=== PATIENT | male | born 1995 | race Two or more races ===

== ENCOUNTER 2024-07-18 19:17 | Inpatient (IN) | payer OTHER ==
[~2024-07-18] VITALS: Ht 170.2 cm; Wt 103.9 kg
[2024-07-18] MEDS: SODIUM CHLORIDE 0.9% 1,000 ML IV ONE ×3 (20:00→22:33)
--- NOTE | 2024-07-18 20:01 | ED.PDOC ---
HPI (NEURO) HPI Comments Carlos HPI: Poor Historian. 29-year-old male presents to emergency department for evaluation of bilateral leg weakness. Patient did some leg exercise at the gym today and was able to walk to his car. He then went to the dealership in when he was there he tried to get up and he fell back down because of bilateral leg weakness. Patient was eventually able to get up again and get to his car and drive his car to go buy some oil. Patient however still feels that there is some bilateral knee weakness. Denies any cauda equina like symptoms. Denies any back pain or abdominal pain. Denies any other injuries. Past Medical History: Diabetes Past Surgical History: Denies any REVIEW OF SYSTEMS: CONSTITUTIONAL: Denies acute: fever, diaphoresis, chills, generalized weakness. HEAD: Denies acute: headache, photophobia Eyes: Denies acute: Double vision, vision loss, eye pain, eye discharge. EARS: Denies acute: tinnitus, hearing loss, ear discharge, ear pain, THROAT: Denies acute: sore throat, swelling, difficulty swallowing , pain with swallowing, change in voice. NECK: Denies acute: neck pain, neck swelling, stiff neck. HEART: Denies acute : chest pain, palpitations, LUNGS: Denies acute: SOB, wheezing, cough, hemoptysis ABDOMEN: Denies acute: abdominal pain, Nausea, Vomiting, diarrhea, melena , hematemesis, hematochezia SKIN: Denies acute: rash, redness, lesions, itchiness. EXTREMITIES: Denies acute: calf pain, numbness, tingling, denies pain in extremity. Denies acute: Low back pain. Neuro: Denies acute: focal neurological deficit, motor or sensory focal neurological deficit, tremors, seizure like activity, confusion, dizziness, change in mental status, loss of bowel or bladder function, cauda equina like symptoms. : Denies acute: dysuria, hematuria, flank pain, increase in urinary frequency. PSYCH: Denies acute: hallucination, suicidal ideation, homicidal ideation. PHYSICAL EXAM: General: no acute distress, awake and alert. Head: normocephalic, atraumatic. Neck: supple, trachea is midline, no swelling. Throat: Normal phonation. Eyes:, no erythema, no purulent discharge, no proptosis, no icterus. Heart: regular tachycardic, no significant murmur appreciated. Lungs: no apparent respiratory distress, Able to speak in full sentences. No wheezing, no rhonchi, no crackles. No stridors Clear to auscultation bilaterally. Abdomen: non tender to palpation, non distended, soft, no guarding, no rebound, + bowel sounds. Neuro: Awake, Alert, oriented to name, self, situation, follows commands GCS=15. Speech is normal. Skin: no petechia, no purpura, no cyanosis, non-pale, not jaundice. Lower extremities: --no - Pitting edema no deformity, no focal swelling, no calf TTP. Makes eye contact. Bilateral lower extremity: Patient is able to flex bilateral hips and rates his knees against gravity and hold it. Patient has weakness of extension of bilateral knees. He feels some discomfort in bilateral knees when he tries to extend both his legs. Face: no apparent facial droop. ED COURSE: Chief Complaint: Lower Extremity Time Seen by MD: 19:22 Reviewed Notes: Nurses Notes, Allergies Information Source: Patient Was a procedure done? Was a procedure done?: No Differential Diagnosis (SZ) Seizure: N/A General Weakness: Anemia, CVA, Dehydration, Dysrhythmia, Electrolyte imbalance, Encephalopathy, Guillain-[place], Hypoglycemia, Hypotension, Hypovolemia, Labyrinthitis, Other (DDX include CVA, intracranial bleed/ischemia/infarct/infection/mass, carotid stenosis, vertebral/carotid artery dissection, radiculopathy, vertebrobasillary insufficiency, BPV, encephalopathy, temporal arteritis, electrolyte abnormality, thyroid disease, pseudotumor cerebri, hydrocephalus, [place] palsy, multiple sclerosis, hy poglycemia, drug toxicity, cardiac arrhythmia. cauda equina syndrome, transverse myelitis.) X-Ray, Labs, Meds, VS Vital Signs Date Time Temp Pulse Resp B/P (MAP) Pulse Ox O2 Delivery O2 Flow Rate FiO2 07/18/24 19:40 99.5 124 16 130/82 (98) 95 99.5 Lab Test 07/18/24 20:50 07/18/24 20:04 07/18/24 19:55 07/18/24 19:51 Range/Units Troponin I High Sensitivity < 3 L < 3 L </=54 ng/L Beta-Hydroxybutyric Acid Pending White Blood Count 12.7 H 4.4-10.8 10^3/uL Red Blood Count 5.93 H 4.5-5.90 10^6/uL Hemoglobin 17.6 H 13.5-17.5 g/dL Hematocrit 52.0 41.0-53.0 % Mean Corpuscular Volume 87.6 80.0-100.0 fL Mean Corpuscular Hemoglobin 29.6 28.0-32.0 pg Mean Corpuscular Hemoglobin Concent 33.8 32.0-36.0 g/dL Red Cell Distribution Width 13.4 11.8-14.3 % Platelet Count 214 140-450 10^3/uL Mean Platelet Volume 9.3 6.9-10.8 fL Neutrophils (%) (Auto) 69.9 37.0-80.0 % Lymphocytes (%) (Auto) 21.3 10.0-50.0 % Monocytes (%) (Auto) 7.8 0.0-12.0 % Eosinophils (%) (Auto) 0.5 0.0-7.0 % Basophils (%) (Auto) 0.5 0.0-2.0 % Neutrophils # (Auto) 8.9 H 1.6-8.6 10 ^3/uL Lymphocytes # (Auto) 2.7 0.4-5.4 10 ^3/uL Monocytes # (Auto) 1.0 0-1.3 10 ^3/uL Eosinophils # (Auto) 0.1 0-0.8 10 ^3/uL Basophils # (Auto) 0.1 0-0.2 10 ^3/uL Nucleated Red Blood Cells 0.4 % Sodium Level 138 136-145 mmol/L Potassium Level 3.4 L 3.5-5.1 mmol/L Chloride Level 102 98-107 mmol/L Carbon Dioxide Level 20 20-31 mmol/L Anion Gap 16 H 5-15 Blood Urea Nitrogen 14 9-23 mg/dL Creatinine 0.91 0.700-1.30 mg/dL Glomerular Filtration Rate Calc 118 >90 mL/min BUN/Creatinine Ratio 15.4 10.0-20.0 Serum Glucose 255 H 74-106 mg/dL Lactic Acid Level 4.2 *H 0.4-2.0 mmol/L Calcium Level 9.8 8.7-10.4 mg/dL Magnesium Level 1.7 1.6-2.6 mg/dL Total Bilirubin 0.7 0.2-1.0 mg/dL Aspartate Amino Transferase (AST) 39 13-40 U/L Alanine Aminotransferase (ALT) 107 H 7-40 U/L Alkaline Phosphatase 116 46-116 U/L Creatine Kinase 1791 H 46-171 U/L C-Reactive Protein High Sensitivity 0.14 <1.0 mg/dL Total Protein 7.3 5.7-8.2 g/dL Albumin 4.8 3.2-4.8 g/dL Urine Color Yellow Yellow Urine Clarity Clear Clear Urine pH 5.0 5.0-9.0 Urine Specific [place] 1.041 H 1.001-1.035 Urine Protein Trace H Negative Urine Ketones 1+ H Negative Urine Blood Negative Negative /uL Urine Nitrite Negative Negative Urine Bilirubin Negative Negative Urine Urobilinogen Normal Negative mg/dL Urine Leukocyte Esterase Negative Negative /uL Urine RBC <1 0 - 3 /hpf Urine Microscopic WBC 1 0-3 /HPF Urine Squamous Epithelial Cells None seen <5 /hpf Urine Bacteria None seen None Seen /hpf Urine Mucus Few None Seen Urine Glucose 4+ H Normal mg/dL Urine Opiates Screen Neg NEGATIVE Urine Fentanyl Screen Neg NEGATIVE Urine Barbiturates Screen Neg NEGATIVE Urine Phencyclidine Screen Neg NEGATIVE Urine Amphetamines Screen Neg NEGATIVE Urine Benzodiazepines Screen Neg NEGATIVE Urine Cocaine Screen Neg NEGATIVE Urine Cannabinoids Screen Neg NEGATIVE POC Glucose 243 H 70-106 mg/dl Current Medications Medications (Trade) Dose Ordered Sig/Tanya Route Start Time Stop Time Status Last Admin Sodium Chloride 1,000 ml @ 1,000 mls/hr Q1H ONCE IV 07/18/24 20:00 07/18/24 20:59 DC 07/18/24 20:00 Ondansetron HCl (Zofran) 8 mg ONCE ONCE IV 07/18/24 21:15 07/18/24 21:16 DC 07/18/24 21:24 Time of 1ST Reevaluation: 22:02 Reevaluation 1ST: Unchanged Patient Education/Counseling: Diagnosis, Treatment Family Education/Counseling: Other Comments Patient presented with the above HPI.---bilateral leg weakness---workup was initiated. patient was found with the above mentioned diagnosis. the following medications were ordered: please refer to order lists of meds and tests obtained by myself Dr. Norton. Patient ED course and VS have been stabilized. Patient has been reassessed in the ED and remained in a stable condition. Pertinent incidental findings were discussed with the patient and/or family. Patient/family voices understanding and is agreeable with plan. Patient has been observed in the ED adequate length of time to insure improvement/stability. Escalation of care considered: Consideration of escalation to observation or admission Patient was ADMITTED to the medicine team for further evaluation and treatment of their presentation. All the reports of any imaging studies that were ordered by myself were reviewed by myself. Departure 1 Departure Time of Disposition: 21:24 Impression: Primary Impression: Rhabdomyolysis Additional Impression: Bilateral leg weakness Disposition: ADMITTED INPATIENT Admit to: Tele Condition: Guarded Discharged With: Self Critical Care Note Critical Care Time?: Yes (35 min-critical care time only) MYLES NORTON DO Jul 18, 2024 20:01
[2024-07-18 20:24] LABS: Lymphocytes # (auto) 2.7 10 ^3/uL (0.4-5.4); Nucleated Red Blood Cells % 0.4 %
[2024-07-18 20:28] LABS: Basophils # (auto) 0.1 10 ^3/uL (0-0.2); Basophils % (auto) 0.5 % (0.0-2.0); Eosinophils # (auto) 0.1 10 ^3/uL (0-0.8); Eosinophils % (auto) 0.5 % (0.0-7.0); Hemoglobin 17.6 g/dL (13.5-17.5); Lymphocytes % (auto) 21.3 % (10.0-50.0); Mean Corpuscular Hemoglobin 29.6 pg (28.0-32.0); Mean Corpuscular Hgb Conc. 33.8 g/dL (32.0-36.0); Mean Corpuscular Volume 87.6 fL (80.0-100.0); Monocytes % (auto) 7.8 % (0.0-12.0); Neutrophils # (auto) 8.9 10 ^3/uL (1.6-8.6); Neutrophils % (auto) 69.9 % (37.0-80.0); Platelet Count (auto) 214 10^3/uL (140-450); Red Blood Cells 5.93 10^6/uL (4.5-5.90); Red Cell Distribution Width 13.4 % (11.8-14.3); White Blood Cell 12.7 10^3/uL (4.4-10.8)
[2024-07-18 20:31] LABS: Urine Bacteria None Seen /hpf (None Seen)
[2024-07-18 20:36] LABS: Alkaline Phosphatase 116 U/L (46-116); Anion Gap 16 (5-15); Aspartate Aminotransferase 39 U/L (13-40); BUN/Creatinine Ratio 15.4 (10.0-20.0); Blood Urea Nitrogen 14 mg/dL (9-23); CRP High Sensitivity 0.14 mg/dL (<1.0); Calcium 9.8 mg/dL (8.7-10.4); Carbon Dioxide 20 mmol/L (20-31); Chloride 102 mmol/L (98-107); Magnesium 1.7 mg/dL (1.6-2.6); Sodium 138 mmol/L (136-145); Total Protein 7.3 g/dL (5.7-8.2)
[2024-07-18 20:37] LABS: Bilirubin, Total 0.7 mg/dL (0.2-1.0)
[2024-07-18 21:19] LABS: Alanine Aminotransferase 107 U/L (7-40); Albumin 4.8 g/dL (3.2-4.8); Creatine Kinase IFCC 1791 U/L (46-171); Glucose 255 mg/dL (74-106); Potassium 3.4 mmol/L (3.5-5.1)
[2024-07-18 21:20] LABS: Amphetamine Screen, Urine Neg (NEGATIVE); Barbiturate Scree,Urine Neg (NEGATIVE); Benzodiazephine Screen, Urine Neg (NEGATIVE); Cannabinoid Screen, Urine Neg (NEGATIVE); Cocaine Screen, Urine Neg (NEGATIVE); Opiate Scree,Urine Neg (NEGATIVE); Phencyclidine Screen, Urine Neg (NEGATIVE)
[2024-07-18 21:22] LABS: Urine Blood Negative /uL (Negative); Urine Clarity Clear (Clear); Urine Color Yellow (Yellow); Urine Mucus FEW (None Seen); Urine Protein, UAD TRACE (Negative); Urine Specific Gravity 1.041 (1.001-1.035); Urine Squamous Epithelial Cell None Seen /hpf (<5); Urine Urobilinogen Normal (Negative); Urine WBC 1 /HPF (0-3)
[2024-07-18] MEDS: ONDANSETRON HCL 4 MG/2 ML VIAL IV ONE (21:24)
[2024-07-18 21:31] LABS: Lactic Acid w/Reflex 4.2 mmol/L (0.4-2.0)
[2024-07-18 22:37] LABS: Albumin 4.3 g/dL (3.2-4.8); Alkaline Phosphatase 100 U/L (46-116); Anion Gap 13 (5-15); Aspartate Aminotransferase 33 U/L (13-40); BUN/Creatinine Ratio 13.5 (10.0-20.0); Bilirubin, Total 0.6 mg/dL (0.2-1.0); Blood Urea Nitrogen 12 mg/dL (9-23); Chloride 105 mmol/L (98-107); Sodium 138 mmol/L (136-145); Total Protein 6.8 g/dL (5.7-8.2)
[2024-07-18 22:38] LABS: Alanine Aminotransferase 94 U/L (7-40); Carbon Dioxide 20 mmol/L (20-31); Glucose 312 mg/dL (74-106); Potassium 3.2 mmol/L (3.5-5.1)
[2024-07-18 22:49] LABS: Creatine Kinase IFCC 1527 U/L (46-171)
[2024-07-18] MEDS ORDERED: DOCUSATE SOD 100 MG CAP PO PRN (23:00)
[2024-07-18] MEDS ORDERED: ACETAMINOPHEN 325 MG TAB PO PRN (23:00)
[2024-07-18] MEDS ORDERED: DEXTROSE (50%) 50ML SYRG IV PRN (23:00)
[2024-07-18] MEDS ORDERED: HYDROcodone-ACET 5/325MG TAB PO PRN (23:00)
[2024-07-18] MEDS ORDERED: ONDANSETRON HCL 4 MG/2 ML VIAL IV PRN (23:00)
--- NOTE | 2024-07-18 23:14 | DVHHP2 ---
History of Present Illness Reason for Visit: Rhabdomyolysis History of Present Illness The patient is a 29-year-old male with past medical history of diabetes mellitus and hyperlipidemia presented to [facility] ED for evaluation of bilateral leg weakness. Patient was seen and evaluated in the ED, laboratory data shows WBC 12.7, platelets 214, sodium 138, potassium 3.8, BUN 12, creatinine 0.89, GFR 120, glucose 312, troponin 3, CPK 1791. Patient was given IV fluid, please see medication orders section in the computer. On my assessment, patient denied chest pain, no headache, no dizziness, no diaphoresis, no shortness of breaths, no nausea, no vomiting, no fever, no chills. No other modifying factor or other associated signs and symptoms noted. The patient was admitted to the hospital for further evaluation and medical management. Past Medical History Diabetes mellitus, HLD Past Surgical History Denies all surgeries Family History Reviewed, noncontributory to the management of this case. Past Social History The patient lives at home, denies smoking, alcohol or illicit drugs abuse. Review of Systems Constitutional: Yes: Weakness; No: Fever, Chills, Sweats, Malaise, Other Eyes: No: Pain, Vision change, Conjunctivae inflammation, Eyelid inflammation, Other, Redness ENT: No: Ear pain, Ear discharge, Nose pain, Nose discharge, Nose congestion, Mouth pain, Mouth swelling, Throat pain, Throat swelling, Other Respiratory: No: Cough, Dry, Shortness of breath, SOB with excertion, Wheezing, Hemoptysis, Pleuritic Pain, Sputum, Wheezing, Other Cardiovascular: No: Chest Pain, Palpitations, Orthopnea, Paroxysmal Noc. Dyspnea, Edema, Lt Headedness, Other Gastrointestinal: No: Nausea, Vomiting, Abdominal Pain, Diarrhea, Constipation, Melena, Hematochezia, Other Genitourinary: No Dysuria, No Frequency, No Incontinence, No Hematuria, No Retention, No Other Musculoskeletal: other (Bilateral leg weakness); No: neck pain, shoulder pain, arm pain, back pain, hand pain, leg pain, foot pain Skin: No: Rash, Lesions, Jaundice, Bruising, Other Neurological: No: Weakness, Numbness, Incoordination, Change in speech, Confusion, Seizures, Other Allergies: Coded Allergies: NO KNOWN ALLERGIES (Unverified , 07/18/24) Medications Current Medications Medications Dose Ordered Sig/Tanya Route Start Time Stop Time Status Last Admin Dose Admin Ceftriaxone Sodium 50 ml @ 100 mls/hr DAILY@09 IV 07/19/24 09:00 UNV Diagnostic Test (Pha) 1 strip IQ4HR 07/19/24 00:00 UNV Insulin Human Regular IQ4HR SC 07/19/24 00:00 UNV Dextrose 50 ml UD PRN IV 07/18/24 23:00 UNV Sodium Chloride 1,000 ml @ 120 mls/hr Q8H20M IV 07/18/24 23:00 UNV Acetaminophen/ Hydrocodone Bitart 1 tab Q4HP PRN PO 07/18/24 23:00 UNV Ondansetron HCl 4 mg Q4HP PRN IV 07/18/24 23:00 UNV Docusate Sodium 100 mg BIDPRN PRN PO 07/18/24 23:00 UNV Acetaminophen 650 mg Q6HP PRN PO 07/18/24 23:00 UNV Exam Vital Signs Vital Signs Date Time Temp Pulse Resp B/P (MAP) Pulse Ox O2 Delivery O2 Flow Rate FiO2 07/18/24 19:40 99.5 124 16 130/82 (98) 95 99.5 General Appearance: Alert, Oriented X3, Cooperative, No acute distress HEENT: Atraumatic, PERRLA, EOMI, Mucous membr. moist/pink Respiratory: Clear to auscultation, Normal air movement Cardiovascular: Regular rate, Normal S1, Normal S2, No murmurs Abdominal: Normal bowel sounds, Soft, No tenderness, No hepatospenomegaly, No masses Extremities: No clubbing, No cyanosis, No edema, Normal pulses, No tenderness/swelling Skin: No rashes, No breakdown, No significant lesion Neuro: Normal speech, Normal tone, Sensation intact, Cranial nerves 3-12 NL, Reflexes 2+, Other (Bilateral leg weakness) Psych/Mental Status: Mental status NL, Mood NL Labs/Xrays Labs Test 07/18/24 22:05 07/18/24 20:50 07/18/24 20:04 07/18/24 19:55 Range/Units Sodium Level 138 136-145 mmol/L Potassium Level 3.2 L 3.5-5.1 mmol/L Chloride Level 105 98-107 mmol/L Carbon Dioxide Level 20 20-31 mmol/L Anion Gap 13 5-15 Blood Urea Nitrogen 12 9-23 mg/dL Creatinine 0.89 0.700-1.30 mg/dL Glomerular Filtration Rate Calc 120 >90 mL/min BUN/Creatinine Ratio 13.5 10.0-20.0 Serum Glucose 312 H 74-106 mg/dL Calcium Level 9.0 8.7-10.4 mg/dL Total Bilirubin 0.6 0.2-1.0 mg/dL Aspartate Amino Transferase (AST) 33 13-40 U/L Alanine Aminotransferase (ALT) 94 H 7-40 U/L Alkaline Phosphatase 100 46-116 U/L Creatine Kinase 1527 H 46-171 U/L Total Protein 6.8 5.7-8.2 g/dL Albumin 4.3 3.2-4.8 g/dL Troponin I High Sensitivity < 3 L </=54 ng/L Beta-Hydroxybutyric Acid 0.208 < 0.4 mmol/L White Blood Count 12.7 H 4.4-10.8 10^3/uL Red Blood Count 5.93 H 4.5-5.90 10^6/uL Hemoglobin 17.6 H 13.5-17.5 g/dL Hematocrit 52.0 41.0-53.0 % Mean Corpuscular Volume 87.6 80.0-100.0 fL Mean Corpuscular Hemoglobin 29.6 28.0-32.0 pg Mean Corpuscular Hemoglobin Concent 33.8 32.0-36.0 g/dL Red Cell Distribution Width 13.4 11.8-14.3 % Platelet Count 214 140-450 10^3/uL Mean Platelet Volume 9.3 6.9-10.8 fL Neutrophils (%) (Auto) 69.9 37.0-80.0 % Lymphocytes (%) (Auto) 21.3 10.0-50.0 % Monocytes (%) (Auto) 7.8 0.0-12.0 % Eosinophils (%) (Auto) 0.5 0.0-7.0 % Basophils (%) (Auto) 0.5 0.0-2.0 % Neutrophils # (Auto) 8.9 H 1.6-8.6 10 ^3/uL Lymphocytes # (Auto) 2.7 0.4-5.4 10 ^3/uL Monocytes # (Auto) 1.0 0-1.3 10 ^3/uL Eosinophils # (Auto) 0.1 0-0.8 10 ^3/uL Basophils # (Auto) 0.1 0-0.2 10 ^3/uL Nucleated Red Blood Cells 0.4 % Magnesium Level 1.7 1.6-2.6 mg/dL C-Reactive Protein High Sensitivity 0.14 <1.0 mg/dL Urine Color Yellow Yellow Urine Clarity Clear Clear Urine pH 5.0 5.0-9.0 Urine Specific [place] 1.041 H 1.001-1.035 Urine Protein Trace H Negative Urine Ketones 1+ H Negative Urine Blood Negative Negative /uL Urine Nitrite Negative Negative Urine Bilirubin Negative Negative Urine Urobilinogen Normal Negative mg/dL Urine Leukocyte Esterase Negative Negative /uL Urine RBC <1 0 - 3 /hpf Urine Microscopic WBC 1 0-3 /HPF Urine Squamous Epithelial Cells None seen <5 /hpf Urine Bacteria None seen None Seen /hpf Urine Mucus Few None Seen Urine Glucose 4+ H Normal mg/dL Urine Opiates Screen Neg NEGATIVE Urine Fentanyl Screen Neg NEGATIVE Urine Barbiturates Screen Neg NEGATIVE Urine Phencyclidine Screen Neg NEGATIVE Urine Amphetamines Screen Neg NEGATIVE Urine Benzodiazepines Screen Neg NEGATIVE Urine Cocaine Screen Neg NEGATIVE Urine Cannabinoids Screen Neg NEGATIVE Test 07/18/24 19:51 Range/Units POC Glucose 243 H 70-106 mg/dl Assessment/Plan Assessment/Plan Rhabdomyolysis Bilateral leg weakness Leukocytosis, unspecified Plan 1. Admit to telemetry unit 2. Breathing treatment 3. Pain control management 4. IV antibiotic management 5. Management of fluids and electrolytes 6. Consultation for hospitalist 7. Diagnostic test chest x-ray 8. DVT prophylaxis on SCDs 9. Repeat labs CBC, CMP in a.m. 10. Home medication reviewed and reconciled 11. Continue with current medical management 12. Treatment plan discussed with patient and RN. Patient verbalized understanding. Plan discussed with: Patient, Other (RN) My Orders Orders - TAYLER JENKINS DNP Procedure Category Date Status Time Potassium Er Tablet PHA 07/18/24 Logged (Klor-Con Tablet) 23:00 Ceftriaxone 1gm/50ml PHA 07/19/24 Logged D5w (Rocephin) 09:00 Ceftriaxone 1gm/50ml PHA 07/18/24 Logged D5w (Rocephin) 23:00 Consistent DIET 07/19/24 Transmitted Carb(Ccho)Diabetes Breakfast Glucose Blood PHA 07/19/24 Logged (Accu-Chek Comfort 00:00 Insulin R (Human) PHA 07/19/24 Logged (Insulin R) 00:00 Dextrose 50% Syringe PHA 07/18/24 Logged 23:00 Allergies [facility] 07/18/24 In Process 22:51 Code Status CODE 07/18/24 Transmitted 22:51 Sodium Chloride 0.9% PHA 07/18/24 Logged 23:00 Oxygen Per Hour RT 07/18/24 Transmitted 22:51 Hydrocodone-Acet PHA 07/18/24 Logged 5/325mg Tab ([place] 23:00 Ondansetron Hcl PHA 07/18/24 Logged (Zofran) 23:00 Docusate Sodium PHA 07/18/24 Logged Capsule ([place] 23:00 Complete Blood Count LAB 07/19/24 Verified 04:00 Comprehensive LAB 07/19/24 Verified Metabolic Panel 04:00 Condition: Serious [facility] 07/18/24 In Process 22:51 Acetaminophen Tablet [facility] 07/18/24 Logged (Tylenol Tablet) 23:00 Bedrest With Bathroom ECTOR 07/18/24 In Process Privileg 22:51 Sequential [facility] 07/18/24 In Process Compression Device Admit ADMIT 07/18/24 Verified 23:12 Nitroglycerin [facility] 07/18/24 Verified Sublingual (Ntrostat 23:15 Morphine Sulfate [facility] 07/18/24 Verified Injection 23:15 Stat Ekg For Chest [facility] 07/18/24 Verified Pain 23:12 Notify Md Of Changes [facility] 07/18/24 Verified From Base 23:12 Rehab Specialist For [facility] 07/18/24 Verified 24 Hours 23:12 Emergency Dysrhythmia [facility] 07/18/24 Verified Protocol 23:12 Rhythm Strips Once [facility] 07/18/24 Verified Every Shift 23:12 Oxygen By Nasal RT 07/18/24 Verified Cannula 23:12 Problem List: (1) Rhabdomyolysis (2) Bilateral leg weakness (3) Leukocytosis, unspecified Date of Service: Jul 18, 2024 Billing Provider: TAYLER JENKINS DNP Common Visit Codes: [id number] INP/OBS CARE (HIGH) TAYLER JENKINS DNP Jul 18, 2024 23:14
[2024-07-18] MEDS ORDERED: NITROGLYCERIN 0.4 MG SL TAB SL PRN (23:15)
[2024-07-18] MEDS ORDERED: MORPHINE SULFATE INJ 2 MG/ml SYRG IV PRN (23:15)
[2024-07-19] VITALS (9 sets, daily range): BP systolic 102–127; BP diastolic 61–78; PULSE 76–101; RESP 16–22; TEMP 97.7–98.2; O2SAT 94–97
[2024-07-19] MEDS: ACCU-CHEK COMFORT CURVE STRIP VI SCH (01:22)
[2024-07-19] MEDS: cefTRIAXone 1GM/50ML D5W 50 ML IV ONE (01:25)
[2024-07-19] MEDS: POTASSIUM CHL 20 Meq TABLET PO ONE (01:25)
[2024-07-19] MEDS: InsuLIN REG 1unit/0.01ml Soln (100units/ml) SC SCH (01:26)
[2024-07-19] MEDS: SODIUM CHLORIDE 0.9% 1,000 ML IV SCH (02:05)
[2024-07-19] MEDS ORDERED: GLIP10TA21 PO (03:02)
[2024-07-19] MEDS ORDERED: METF-372 PO (03:02)
[2024-07-19 06:35] LABS: Basophils # (auto) 0 10 ^3/uL (0-0.2); Basophils % (auto) 0.4 % (0.0-2.0); Eosinophils # (auto) 0.1 10 ^3/uL (0-0.8); Eosinophils % (auto) 0.9 % (0.0-7.0); Hematocrit 44.9 % (41.0-53.0); Lymphocytes # (auto) 3.1 10 ^3/uL (0.4-5.4); Lymphocytes % (auto) 37.4 % (10.0-50.0); Mean Corpuscular Hemoglobin 29.5 pg (28.0-32.0); Mean Corpuscular Hgb Conc. 33.4 g/dL (32.0-36.0); Mean Corpuscular Volume 88.2 fL (80.0-100.0); Monocytes # (auto) 0.7 10 ^3/uL (0-1.3); Monocytes % (auto) 8.2 % (0.0-12.0); Neutrophils # (auto) 4.3 10 ^3/uL (1.6-8.6); Neutrophils % (auto) 53.1 % (37.0-80.0); Nucleated Red Blood Cells % 0.1 %; Platelet Count (auto) 202 10^3/uL (140-450); Red Blood Cells 5.09 10^6/uL (4.5-5.90); Red Cell Distribution Width 13.6 % (11.8-14.3); White Blood Cell 8.2 10^3/uL (4.4-10.8)
[2024-07-19 06:53] LABS: Sodium 143 mmol/L (136-145)
[2024-07-19 07:02] LABS: Calcium 8.7 mg/dL (8.7-10.4)
[2024-07-19 07:04] LABS: Alkaline Phosphatase 82 U/L (46-116)
[2024-07-19 07:05] LABS: Chloride 111 mmol/L (98-107); Potassium 3.1 mmol/L (3.5-5.1)
[2024-07-19 07:06] LABS: Anion Gap 10 (5-15); Carbon Dioxide 22 mmol/L (20-31)
[2024-07-19 07:07] LABS: BUN/Creatinine Ratio 19.7 (10.0-20.0); Blood Urea Nitrogen 13 mg/dL (9-23)
[2024-07-19 07:08] LABS: Aspartate Aminotransferase 27 U/L (13-40)
[2024-07-19 07:09] LABS: Bilirubin, Total 0.8 mg/dL (0.2-1.0)
[2024-07-19 07:13] LABS: Alanine Aminotransferase 78 U/L (7-40); Glucose 122 mg/dL (74-106)
--- NOTE | 2024-07-19 09:09 | DVHPN2 ---
Subjective Decreasing muscle soreness Reviewed: Care Plan, H&P, Labs, Medications, Previous Orders, Radiology Changes from previous H/P or p: Changes Objective Vitals Vital Signs Date Time Temp Pulse Resp B/P (MAP) Pulse Ox O2 Delivery O2 Flow Rate FiO2 07/19/24 08:54 97.9 84 20 102/72 (82) 96 97.9 07/19/24 02:26 Room Air* 0 21 Intake/Output Intake and Output 07/19/24 07:00 Intake Total 3740 ml Output Total 600 ml Balance 3140 ml Intake Oral 740 ml IV Total 3000 ml Output Urine Total 600 ml # Voids 4 General Appearance: Alert, Oriented X3, Cooperative, No acute distress HEENT: Atraumatic Lungs: Clear to auscultation, Normal air movement Cardiovascular: Regular rate, Normal S1, Normal S2 Abdomen: Normal bowel sounds, Soft, No tenderness Extremities: No edema Neuro: Normal speech, Cranial nerves 3-12 NL Psych/Mental Status: Mental status NL, Mood NL Medications Current Medications Medications Dose Ordered Sig/Tanya Route Start Time Stop Time Status Last Admin Dose Admin Ceftriaxone Sodium 50 ml @ 100 mls/hr DAILY@09 IV 07/19/24 09:00 Diagnostic Test (Pha) 1 strip IQ4HR 07/19/24 00:00 07/19/24 08:00 1 STRIP Insulin Human Regular IQ4HR SC 07/19/24 00:00 07/19/24 08:00 6 UNITS Dextrose 50 ml UD PRN IV 07/18/24 23:00 Sodium Chloride 1,000 ml @ 120 mls/hr Q8H20M IV 07/18/24 23:00 07/19/24 07:39 120 MLS/HR Acetaminophen/ Hydrocodone Bitart 1 tab Q4HP PRN PO 07/18/24 23:00 Ondansetron HCl 4 mg Q4HP PRN IV 07/18/24 23:00 Docusate Sodium 100 mg BIDPRN PRN PO 07/18/24 23:00 Acetaminophen 650 mg Q6HP PRN PO 07/18/24 23:00 Nitroglycerin 0.4 mg Q5MINP PRN SL 07/18/24 23:15 Morphine Sulfate 2 mg Q30M PRN IV 07/18/24 23:15 Laboratory Results Laboratory Tests 07/19/24 05:30 Chemistry Test 07/18/24 20:04 07/18/24 22:05 07/19/24 05:30 Albumin 4.8 g/dL (3.2-4.8) 4.3 g/dL (3.2-4.8) 4.0 g/dL (3.2-4.8) Calcium Level 9.8 mg/dL (8.7-10.4) 9.0 mg/dL (8.7-10.4) 8.7 mg/dL (8.7-10.4) Magnesium Level 1.7 mg/dL (1.6-2.6) Total Protein 7.3 g/dL (5.7-8.2) 6.8 g/dL (5.7-8.2) 6.0 g/dL (5.7-8.2) LFT Test 07/18/24 20:04 07/18/24 22:05 07/19/24 05:30 Alanine Aminotransferase (ALT) 107 U/L (7-40) H 94 U/L (7-40) H 78 U/L (7-40) H Alkaline Phosphatase 116 U/L (46-116) 100 U/L (46-116) 82 U/L (46-116) Aspartate Amino Transferase (AST) 39 U/L (13-40) 33 U/L (13-40) 27 U/L (13-40) Total Bilirubin 0.7 mg/dL (0.2-1.0) 0.6 mg/dL (0.2-1.0) 0.8 mg/dL (0.2-1.0) Urinalysis Test 07/18/24 19:55 Urine Color Yellow (Yellow) Urine Clarity Clear (Clear) Urine pH 5.0 (5.0-9.0) Urine Specific [place] 1.041 (1.001-1.035) Urine Protein Trace (Negative) H Urine Ketones 1+ (Negative) H Urine Blood Negative /uL (Negative) Urine Nitrite Negative (Negative) Urine Bilirubin Negative (Negative) Urine Urobilinogen Normal mg/dL (Negative) Urine Leukocyte Esterase Negative /uL (Negative) Urine RBC <1 /hpf (0 - 3) Urine Microscopic WBC 1 /HPF (0-3) Urine Squamous Epithelial Cells None seen /hpf (<5) Urine Bacteria None seen /hpf (None Seen) Urine Mucus Few (None Seen) Urine Glucose 4+ mg/dL (Normal) H Labs and/or images reviewed: Labs reviewed by me, Image(s) reviewed by me Assessment/Plan Assessment/Plan A 29-year-old male patient; with a past medical history of diabetes mellitus type 2 and morbid obesity; who presented to emergency department with muscle soreness after excessive exercise and dehydration. #Rhabdomyolysis due to excessive exercise and dehydration; causing muscle soreness; creatinine kinase trending down; continue IV fluids; reviewed urinalysis and drug screen; continue pain management as indicated; continue monitoring #Dehydration with impaired renal function; avoid nephrotoxic agents; continue IV fluids; continue monitoring #SIRS with leukocytosis, tachypnea, and tachycardia; reactive; resolved; to stop IV antibiotics; continue monitoring Hypokalemia; most likely due to decreased oral intake; to replace electrolyte/s as indicated; ordered add-on magnesium level to morning labs; ordered potassium replacement; continue monitoring #Diabetes mellitus type 2; holding home medications including metformin; continue insulin sliding scale with hypoglycemia protocol; continue monitoring #Morbid obesity; counseled the patient on the importance of adopting healthy lifestyle with diet and exercise in order to lose weight; continue monitor Goals of care discussed with the patient for 20 minutes; full code Late Entry. This medical document was created using an electronic medical record system with computerized dictation system. Although this document has been carefully reviewed, there might still be some phonetic and typographical errors. These areas are purely typographical due to imperfections of the software programs, and do not reflect any compromise in the patient's medical care. Plan discussed with: Patient, Other (Nurse; Mother) My Orders Orders - VIC GEE MD Procedure Category Date Status Time Potassium Effervesent PHA 07/19/24 Logged Tab (Klor-Con/Ef) 09:15 Potassium Chloride PHA 07/19/24 Logged (Potassium Chloride). 09:15 Magnesium LAB 07/19/24 Transmitted 09:06 Complete Blood Count LAB 07/20/24 Verified 04:00 Comprehensive LAB 07/20/24 Verified Metabolic Panel 04:00 Creatine Kinase LAB 07/20/24 Verified 04:00 Date of Service: Jul 19, 2024 Billing Provider: VIC GEE MD Common Visit Codes: [id number] INP/OBS CARE(HIGH) Secondary Visit Codes: [id number] CARE PLAN 30 MINUTES (20 minutes) VIC GEE MD Jul 19, 2024 09:09
[2024-07-19] MEDS: cefTRIAXone 1GM/50ML D5W 50 ML IV SCH (09:21)
[2024-07-19] MEDS: POTASSIUM CHLORIDE 40 MEQ, LIDOCAINE 1% (LOCAL ANESTH.) 4 ML in SODIUM CHL 0.9% 250 ML IV ONE (10:50)
[2024-07-19] MEDS: POTASSIUM EFFERVESENT TAB 25 MEQ PO ONE (10:50)
[2024-07-19] MEDS: MAGNESIUM SULFATE 1GM/100ML 100 ML IV ONE (11:41)
[2024-07-20 01:00] VITALS: BP 112/72; PULSE 84; RESP 24; TEMP 98; O2SAT 95
[2024-07-20 04:57] VITALS: BP 117/67; PULSE 76; RESP 20; TEMP 97.8; O2SAT 94
[2024-07-20 06:07] LABS: Basophils # (auto) 0 10 ^3/uL (0-0.2); Basophils % (auto) 0.4 % (0.0-2.0); Eosinophils # (auto) 0.1 10 ^3/uL (0-0.8); Eosinophils % (auto) 1.3 % (0.0-7.0); Hematocrit 43.1 % (41.0-53.0); Hemoglobin 15.2 g/dL (13.5-17.5); Lymphocytes # (auto) 2.7 10 ^3/uL (0.4-5.4); Mean Corpuscular Hgb Conc. 35.2 g/dL (32.0-36.0); Monocytes # (auto) 0.6 10 ^3/uL (0-1.3); Monocytes % (auto) 7.2 % (0.0-12.0); Neutrophils # (auto) 4.5 10 ^3/uL (1.6-8.6); Neutrophils % (auto) 57.1 % (37.0-80.0); Nucleated Red Blood Cells % 0.2 %; Platelet Count (auto) 178 10^3/uL (140-450); Red Blood Cells 4.89 10^6/uL (4.5-5.90); Red Cell Distribution Width 13.5 % (11.8-14.3); White Blood Cell 7.9 10^3/uL (4.4-10.8)
[2024-07-20 06:19] LABS: Albumin 3.9 g/dL (3.2-4.8); Alkaline Phosphatase 84 U/L (46-116); Anion Gap 10 (5-15); Aspartate Aminotransferase 27 U/L (13-40); BUN/Creatinine Ratio 16.7 (10.0-20.0); Bilirubin, Total 0.8 mg/dL (0.2-1.0); Blood Urea Nitrogen 11 mg/dL (9-23); Calcium 8.8 mg/dL (8.7-10.4); Carbon Dioxide 23 mmol/L (20-31); Chloride 107 mmol/L (98-107); Potassium 3.8 mmol/L (3.5-5.1); Sodium 140 mmol/L (136-145); Total Protein 6.1 g/dL (5.7-8.2)
[2024-07-20 06:44] LABS: Alanine Aminotransferase 74 U/L (7-40); Creatine Kinase IFCC 637 U/L (46-171); Glucose 176 mg/dL (74-106)
[2024-07-20 08:00] VITALS: PULSE 76; PULSE 84; RESP 16; O2SAT 95
--- NOTE | 2024-07-20 09:17 | DVHPN2 ---
Subjective Feeling great this morning with no complaint Reviewed: Care Plan, H&P, Labs, Medications, Previous Orders, Radiology Changes from previous H/P or p: Changes Objective Vitals Vital Signs Date Time Temp Pulse Resp B/P (MAP) Pulse Ox O2 Delivery O2 Flow Rate FiO2 07/20/24 04:57 97.8 76 20 117/67 (84) 94 97.8 07/19/24 20:00 Room Air* 0 21 Intake/Output Intake and Output 07/20/24 07:00 Intake Total 2310 ml Output Total 600 ml Balance 1710 ml Intake Oral 2090 ml IV Total 220 ml Output Urine Total 600 ml # Voids 8 # Bowel Movements 2 General Appearance: Alert, Oriented X3, Cooperative, No acute distress HEENT: Atraumatic Lungs: Clear to auscultation, Normal air movement Cardiovascular: Regular rate, Normal S1, Normal S2 Abdomen: Normal bowel sounds, Soft, No tenderness Extremities: No edema Neuro: Normal speech, Cranial nerves 3-12 NL Psych/Mental Status: Mental status NL, Mood NL Medications Current Medications Medications Dose Ordered Sig/Tanya Route Start Time Stop Time Status Last Admin Dose Admin Diagnostic Test (Pha) 1 strip IQ4HR 07/19/24 00:00 07/20/24 08:00 1 STRIP Insulin Human Regular IQ4HR SC 07/19/24 00:00 07/20/24 09:01 6 UNITS Dextrose 50 ml UD PRN IV 07/18/24 23:00 Sodium Chloride 1,000 ml @ 120 mls/hr Q8H20M IV 07/18/24 23:00 07/20/24 08:47 120 MLS/HR Acetaminophen/ Hydrocodone Bitart 1 tab Q4HP PRN PO 07/18/24 23:00 Ondansetron HCl 4 mg Q4HP PRN IV 07/18/24 23:00 Docusate Sodium 100 mg BIDPRN PRN PO 07/18/24 23:00 Acetaminophen 650 mg Q6HP PRN PO 07/18/24 23:00 Nitroglycerin 0.4 mg Q5MINP PRN SL 07/18/24 23:15 Morphine Sulfate 2 mg Q30M PRN IV 07/18/24 23:15 Laboratory Results Laboratory Tests 07/20/24 05:20 Chemistry Test 07/20/24 05:20 Albumin 3.9 g/dL (3.2-4.8) Calcium Level 8.8 mg/dL (8.7-10.4) Total Protein 6.1 g/dL (5.7-8.2) LFT Test 07/20/24 05:20 Alanine Aminotransferase (ALT) 74 U/L (7-40) H Alkaline Phosphatase 84 U/L (46-116) Aspartate Amino Transferase (AST) 27 U/L (13-40) Total Bilirubin 0.8 mg/dL (0.2-1.0) Urinalysis Test 07/18/24 19:55 Urine Color Yellow (Yellow) Urine Clarity Clear (Clear) Urine pH 5.0 (5.0-9.0) Urine Specific Dexter 1.041 (1.001-1.035) Urine Protein Trace (Negative) H Urine Ketones 1+ (Negative) H Urine Blood Negative /uL (Negative) Urine Nitrite Negative (Negative) Urine Bilirubin Negative (Negative) Urine Urobilinogen Normal mg/dL (Negative) Urine Leukocyte Esterase Negative /uL (Negative) Urine RBC <1 /hpf (0 - 3) Urine Microscopic WBC 1 /HPF (0-3) Urine Squamous Epithelial Cells None seen /hpf (<5) Urine Bacteria None seen /hpf (None Seen) Urine Mucus Few (None Seen) Urine Glucose 4+ mg/dL (Normal) H Labs and/or images reviewed: Labs reviewed by me, Image(s) reviewed by me Assessment/Plan Assessment/Plan A 29-year-old male patient; with a past medical history of diabetes mellitus type 2 and morbid obesity; who presented to emergency department with muscle soreness after excessive exercise and dehydration. #Rhabdomyolysis due to excessive exercise and dehydration; causing muscle soreness that is now resolved; creatinine kinase continues trending down; received IV fluids; reviewed urinalysis and drug screen; to be discharged home; educated about keeping well hydrated; to follow up with discharge clinic or with the primary care provider within one week #Dehydration with impaired renal function; avoid nephrotoxic agents; received IV fluids; educated about keeping well hydrated; to follow up with discharge clinic or with the primary care provider within one week #Lactic acidosis due to dehydration; received IV fluids; resolved; educated about keeping well hydrated; to follow up with discharge clinic or with the primary care provider within one week #SIRS with leukocytosis, tachypnea, and tachycardia; reactive; resolved; stopped IV antibiotics; to follow up with discharge clinic or with the primary care provider within one week #Hypokalemia; most likely due to decreased oral intake; corrected after replacement; to follow up with discharge clinic or with the primary care provider within one week #Diabetes mellitus type 2; holding home medications including metformin during hospitalization; was on insulin sliding scale with hypoglycemia protocol; to resume home antidiabetic medications upon discharge; to follow up with discharge clinic or with the primary care provider within one week #Morbid obesity; counseled the patient on the importance of adopting healthy lifestyle with diet and exercise in order to lose weight; to follow up with discharge clinic or with the primary care provider within one week This medical document was created using an electronic medical record system with computerized dictation system. Although this document has been carefully reviewed, there might still be some phonetic and typographical errors. These areas are purely typographical due to imperfections of the software programs, and do not reflect any compromise in the patient's medical care. Plan discussed with: Patient, Other (Nurse) Date of Service: Jul 20, 2024 Billing Provider: VIC GEE MD Common Visit Codes: [id number] INP/OBS CARE(MOD) VIC GEE MD Jul 20, 2024 09:16
--- NOTE | 2024-07-20 09:20 | DVHDS2 ---
Discharge Summary Date of Admission Jul 18, 2024 at 23:12 Date of Discharge: Jul 20, 2024 Admitting Diagnosis Muscle soreness Labs/Diagnostic Data: Laboratory Results Test 07/20/24 08:34 07/20/24 05:20 07/19/24 09:08 07/19/24 05:30 POC Glucose 236 mg/dl (70-106) White Blood Count 7.9 10^3/uL (4.4-10.8) Red Blood Count 4.89 10^6/uL (4.5-5.90) Hemoglobin 15.2 g/dL (13.5-17.5) Hematocrit 43.1 % (41.0-53.0) Mean Corpuscular Volume 88.0 fL (80.0-100.0) Mean Corpuscular Hemoglobin 31.0 pg (28.0-32.0) Mean Corpuscular Hemoglobin Concent 35.2 g/dL (32.0-36.0) Red Cell Distribution Width 13.5 % (11.8-14.3) Platelet Count 178 10^3/uL (140-450) Mean Platelet Volume 9.2 fL (6.9-10.8) Neutrophils (%) (Auto) 57.1 % (37.0-80.0) Lymphocytes (%) (Auto) 34.0 % (10.0-50.0) Monocytes (%) (Auto) 7.2 % (0.0-12.0) Eosinophils (%) (Auto) 1.3 % (0.0-7.0) Basophils (%) (Auto) 0.4 % (0.0-2.0) Neutrophils # (Auto) 4.5 10 ^3/uL (1.6-8.6) Lymphocytes # (Auto) 2.7 10 ^3/uL (0.4-5.4) Monocytes # (Auto) 0.6 10 ^3/uL (0-1.3) Eosinophils # (Auto) 0.1 10 ^3/uL (0-0.8) Basophils # (Auto) 0 10 ^3/uL (0-0.2) Nucleated Red Blood Cells 0.2 % Sodium Level 140 mmol/L (136-145) Potassium Level 3.8 mmol/L (3.5-5.1) Chloride Level 107 mmol/L (98-107) Carbon Dioxide Level 23 mmol/L (20-31) Anion Gap 10 (5-15) Blood Urea Nitrogen 11 mg/dL (9-23) Creatinine 0.66 mg/dL (0.700-1.30) Glomerular Filtration Rate Calc 132 mL/min (>90) BUN/Creatinine Ratio 16.7 (10.0-20.0) Serum Glucose 176 mg/dL (74-106) Calcium Level 8.8 mg/dL (8.7-10.4) Total Bilirubin 0.8 mg/dL (0.2-1.0) Aspartate Amino Transferase (AST) 27 U/L (13-40) Alanine Aminotransferase (ALT) 74 U/L (7-40) Alkaline Phosphatase 84 U/L (46-116) Creatine Kinase 637 U/L (46-171) Total Protein 6.1 g/dL (5.7-8.2) Albumin 3.9 g/dL (3.2-4.8) Lactic Acid Level 1.7 mmol/L (0.4-2.0) Magnesium Level 1.8 mg/dL (1.6-2.6) Test 07/18/24 20:50 07/18/24 20:04 07/18/24 19:55 Troponin I High Sensitivity < 3 ng/L (</=54) Beta-Hydroxybutyric Acid 0.208 mmol/L (< 0.4) C-Reactive Protein High Sensitivity 0.14 mg/dL (<1.0) Urine Color Yellow (Yellow) Urine Clarity Clear (Clear) Urine pH 5.0 (5.0-9.0) Urine Specific Russell 1.041 (1.001-1.035) Urine Protein Trace (Negative) Urine Ketones 1+ (Negative) Urine Blood Negative /uL (Negative) Urine Nitrite Negative (Negative) Urine Bilirubin Negative (Negative) Urine Urobilinogen Normal mg/dL (Negative) Urine Leukocyte Esterase Negative /uL (Negative) Urine RBC <1 /hpf (0 - 3) Urine Microscopic WBC 1 /HPF (0-3) Urine Squamous Epithelial Cells None seen /hpf (<5) Urine Bacteria None seen /hpf (None Seen) Urine Mucus Few (None Seen) Urine Glucose 4+ mg/dL (Normal) Urine Opiates Screen Neg (NEGATIVE) Urine Fentanyl Screen Neg (NEGATIVE) Urine Barbiturates Screen Neg (NEGATIVE) Urine Phencyclidine Screen Neg (NEGATIVE) Urine Amphetamines Screen Neg (NEGATIVE) Urine Benzodiazepines Screen Neg (NEGATIVE) Urine Cocaine Screen Neg (NEGATIVE) Urine Cannabinoids Screen Neg (NEGATIVE) Other Laboratory Tests 07/20/24 05:20 Brief Hx & Hospital Course: A 29-year-old male patient; with a past medical history of diabetes mellitus type 2 and morbid obesity; who presented to emergency department with muscle soreness after excessive exercise and dehydration. #Rhabdomyolysis due to excessive exercise and dehydration; causing muscle soreness that is now resolved; creatinine kinase continues trending down; received IV fluids; reviewed urinalysis and drug screen; to be discharged home; educated about keeping well hydrated; to follow up with discharge clinic or with the primary care provider within one week #Dehydration with impaired renal function; avoid nephrotoxic agents; received IV fluids; educated about keeping well hydrated; to follow up with discharge clinic or with the primary care provider within one week #Lactic acidosis due to dehydration; received IV fluids; resolved; educated about keeping well hydrated; to follow up with discharge clinic or with the primary care provider within one week #SIRS with leukocytosis, tachypnea, and tachycardia; reactive; resolved; stopped IV antibiotics; to follow up with discharge clinic or with the primary care provider within one week #Hypokalemia; most likely due to decreased oral intake; corrected after replacement; to follow up with discharge clinic or with the primary care provider within one week #Diabetes mellitus type 2; holding home medications including metformin during hospitalization; was on insulin sliding scale with hypoglycemia protocol; to resume home antidiabetic medications upon discharge; to follow up with discharge clinic or with the primary care provider within one week #Morbid obesity; counseled the patient on the importance of adopting healthy lifestyle with diet and exercise in order to lose weight; to follow up with discharge clinic or with the primary care provider within one week This medical document was created using an electronic medical record system with computerized dictation system. Although this document has been carefully reviewed, there might still be some phonetic and typographical errors. These areas are purely typographical due to imperfections of the software programs, and do not reflect any compromise in the patient's medical care. Condition at Discharge: Good Final Diagnosis/Problems List Rhabdomyolysis due to excessive exercise and dehydration Rest of diagnoses as above Discharge Disposition: Home Discharge Instruct/Medications Diet: Cardiac 2g Na,low cholest (To keep well hydrated) Activity: No Restrictions, As Tolerated Follow Up/Referral: Follow up with discharge clinic within one week or primary care provider within one week Medications: Continue home medications Discharge Statement: "Patient was advised to return to the ER or call 911 if any headaches, dizziness, shortness of breath, chest pain, abdominal pain, bleeding, fevers, or worsening of medical condition. Patient was counseled about treatment plan, medications, possible side effects, patientverbalized understanding. All questions were answered to the best of my ability. This discharge took greater then 30 minutes in planning, reviewing documentation, counseling the patient, and discussing with other team members." ASSESSMENT ASSESSMENT Assessment Date of Service: Jul 20, 2024 Billing Provider: VIC GEE MD Common Visit Codes: [id number]-[id number] DISCH DAY >30min VIC GEE MD Jul 20, 2024 09:20
[2024-07-20 10:36] VITALS: TEMP 36.6
== END 2024-07-20 12:00 | disposition home or self-care (01) | DRG 558 ==
LOC: ER 19:17 → OVERFLOW 23:12 → TELE-CENTR 07-19 02:00
PROVIDERS: ADMIT Nurse Practitioner Family; ATTEND Nurse Practitioner Family
DX: M62.82 Rhabdomyolysis (principal); R65.10 Systemic inflammatory response syndrome (SIRS) of non-infectious origin without acute organ dysfunction; E87.20 Acidosis, unspecified; E86.0 Dehydration; E87.6 Hypokalemia; E11.65 Type 2 diabetes mellitus with hyperglycemia; D72.829 Elevated white blood cell count, unspecified; E66.01 Morbid (severe) obesity due to excess calories; E78.5 Hyperlipidemia, unspecified; Z68.35 Body mass index [BMI] 35.0-35.9, adult
CPT/HCPCS: 36415; 80053; 80307; 81001; 82010; 82550; 82962; 83605; 83735; 84484; 85025; 86141; 96361; 96374; 99291; G0378; J1815; J2003; J2405